=== PATIENT | female | born 1995 | race Hispanic/Latino ===

== ENCOUNTER 2017-08-07 06:53 | Emergency (ER) | payer OTHER ==
[~2017-08-07] VITALS: Ht 165.1 cm; Wt 68.0 kg
[~2017-08-07 06:53] MED LIST: CIPRO500 MG PO; KEFLEX500 MG PO; LIDOCAINE20 MG/1 M2 TOP; NEXPLANON68 MG SUB-Q; OMEPRAZOLE20 MG PO; PYRIDIUM200 MG PO; ULTRAM50 MG PO; ZOFRAN ODT8 MG PO; ZOVIRAX200 MG PO
[2017-08-07] MEDS ORDERED: NAPROSYN500 MG PO (08:15)
--- OUTSIDE RECORDS SUMMARY | 2017-08-07 08:18 | XMS ---
Demographics + + + | Address | [address] | | | [address] | | | [place] [address] | + + + | Preferred Language | Unknown | + + + | Marital Status | Unknown | + + + | Islam Affiliation | Unknown | + + + | Race | Unknown | + + + | Ethnic Group | Unknown | + + + Author + + + | Author | [facility] | + + + | Organization | [facility] | + + + | Address | [address] | | | [place] [address] | + + + | Phone | | + + + Care Team Providers + + + + | Care Medical Logistics Specialist Name | Role | Phone | + + + + Unavailable | Unavailable | + + + + PROBLEMS +---------+ + + +--------+ + + | Type | Condition | ICD9-CM | [id number] | Onset | Condition | SNOMED | | | | Code | Code | Dates | Status | Code | +---------+ + + +--------+ + + | Problem | Bipolar | F31.9 | | | Active | [id number] | | | disorder | | | | | | +---------+ + + +--------+ + + | Problem | Anxiety | F41.8 | | | Active | [id number] | | | with | | | | | | | | depression | | | | | | +---------+ + + +--------+ + + | Problem | Left lower | R10.32 | | | Active | [id number] | | | quadrant | | | | | | | | abdominal | | | | | | | | pain of | | | | | | | | unknown | | | | | | | | etiology | | | | | | +---------+ + + +--------+ + + | Problem | PTSD | | F43.10 | | Active | 86510089 | | | (post-trau | | | | | | | | matic | | | | | | | | stress | | | | | | | | disorder) | | | | | | +---------+ + + +--------+ + + | Problem | Epigastric | | R10.13 | | Active | 32693192 | | | pain | | | | | | +---------+ + + +--------+ + + ALLERGIES Unknown Allergies SOCIAL HISTORY No smoking Hx information available PLAN OF CARE VITAL SIGNS MEDICATIONS + + + + + + + +--------+ | Medicati | Instruct | Dosage | Frequenc | Start | End Date | Duration | Status | | on | ions | | y | Date | | | | + + + + + + + +--------+ | Metronid | Orally | 1 tablet | 8h | 31 Jan, | 10 Aug, | 14 | Active | | azole | every 8 | | | 2017 | 2017 | day(s) | | | 500 MG | hrs | | | | | | | + + + + + + + +--------+ RESULTS No Results PROCEDURES No Known procedures IMMUNIZATIONS No Known Immunizations"
--- OUTSIDE RECORDS SUMMARY | 2017-08-07 08:19 | XMS ---
Demographics + + + | Address | [address] | | | [address] | | | [place] [address] | + + + | Preferred Language | Unknown | + + + | Marital Status | Unknown | + + + | Judaism Affiliation | Unknown | + + + | Race | Unknown | + + + | Ethnic Group | Unknown | + + + Author + + + | Author | [facility] | + + + | Organization | [facility] | + + + | Address | [address] | | | [place] [address] | + + + | Phone | | + + + Care Team Providers + + + + | Care Cook Fish Eggs Name | Role | Phone | + + + + Unavailable | Unavailable | + + + + PROBLEMS +---------+ + + +--------+ + + | Type | Condition | ICD9-CM | [id number] | Onset | Condition | SNOMED | | | | Code | Code | Dates | Status | Code | +---------+ + + +--------+ + + | Problem | Bipolar | F31.9 | | | Active | [id number] | | | disorder | | | | | | +---------+ + + +--------+ + + | Problem | Anxiety | F41.8 | | | Active | [id number] | | | with | | | | | | | | depression | | | | | | +---------+ + + +--------+ + + | Problem | Left lower | R10.32 | | | Active | [id number] | | | quadrant | | | [...] | | F43.10 | | Active | 03130048 | | | (post-trau | | | | | | | | matic | | | | | | | | stress | | | | | | | | disorder) | | | | | | +---------+ + + +--------+ + + | Problem | Epigastric | | R10.13 | | Active | 68947938 | | | pain | | | | | | +---------+ + + +--------+ + + ALLERGIES + + + + +--------+ | Substance | Reaction | Event Type | Date | Status | + + + + +--------+ | Seasonal | Unknown | Non Drug | Mar, | Active | | | | Allergy | | | + + + + +--------+ SOCIAL HISTORY No smoking Hx information available PLAN OF CARE + +---------+ | Activity | Details | + +---------+ +---+ | | +---+ + + + | Follow Up | prn Reason:null | + + + VITAL SIGNS + + + + | Height | 65.5 in | 2017-03-12 | + + + + | Weight | 149 lbs | 2017-03-12 | + + + + | BMI | 24.42 kg/m2 | 2017-03-12 | + + + + | Temperature | 99.1 degrees Fahrenheit | 2017-03-12 | + + + + | Heart Rate | 113 /min | 2017-03-12 | + + + + | Blood pressure systolic | 120 mm Hg | 2017-03-12 | + + + + | Blood pressure diastolic | 75 mm Hg | 2017-03-12 | + + + + MEDICATIONS + + +--------+ +--------+ + +--------+ | Medicati | Instruct | Dosage | Frequenc | Start | End Date | Duration | Status | | on | ions | | y | Date | | | | + + +--------+ +--------+ + +--------+ | Nexplano | | | | | | | Active | | n | | | | | | | | + + +--------+ +--------+ + +--------+ RESULTS No Results PROCEDURES + + + + + | Procedure | Date Ordered | Related Diagnosis | Body Site | + + + + + | Est Level IV | Mar 12, 2017 | | | | Extended | | | | + + + + + | DSCHRG MED/CURRENT | Mar 12, 2017 | | | | MED MERGE | | | | + + + + + | DOC MEDS VERIFIED | Mar 12, 2017 | | | | W/PT OR RE | | | | + + + + + IMMUNIZATIONS No Known Immunizations"
--- OUTSIDE RECORDS SUMMARY | 2017-08-07 08:19 | XMS ---
Demographics + + + | Address | [address] | | | [address] | | | [place] [address] | + + + | Preferred Language | Unknown | + + + | Marital Status | Unknown | + + + | Yazidism Affiliation | Unknown | + + + | Race | Unknown | + + + | Ethnic Group | Unknown | + + + Author + + + | Author | [facility] | + + + | Organization | [facility] | + + + | Address | [address] | | | [place] [address] | + + + | Phone | | + + + Care Team Providers + + + + | Care Public Address Announcer Name | Role | Phone | + + + + Unavailable | Unavailable | + + + + PROBLEMS +---------+ + + +--------+ + + | Type | Condition | ICD9-CM | [id number] | Onset | Condition | SNOMED | | | | Code | Code | Dates | Status | Code | +---------+ + + +--------+ + + | Problem | Bipolar | F31.9 | | | Active | [id number] | | | disorder | | | | | | +---------+ + + +--------+ + + | Problem | Anxiety | F41.8 | | | Active | [id number] | | | with | | | | | | | | depression | | | | | | +---------+ + + +--------+ + + | Problem | Left lower | R10.32 | | | Active | [id number] | | | quadrant | | | [...] | | F43.10 | | Active | 60410675 | | | (post-trau | | | | | | | | matic | | | | | | | | stress | | | | | | | | disorder) | | | | | | +---------+ + + +--------+ + + | Problem | Epigastric | | R10.13 | | Active | 12582594 | | | pain | | | | | | +---------+ + + +--------+ + + ALLERGIES Unknown Allergies SOCIAL HISTORY No smoking Hx information available PLAN OF CARE VITAL SIGNS MEDICATIONS Unknown Medications RESULTS No Results PROCEDURES No Known procedures IMMUNIZATIONS No Known Immunizations"
--- OUTSIDE RECORDS SUMMARY | 2017-08-07 08:19 | XMS ---
Demographics + + + | Address | [address] | | | [address] | | | [place] [address] | + + + | Preferred Language [...] | + + + | Organization | [facility] | + + + | Address | [address] | | | [place] [address] | + + + | Phone | | + + + Care Team Providers + + + + | Care Evaluator Name | Role | Phone | + + + + Unavailable | Unavailable | + + + + PROBLEMS +---------+ + + +--------+ + + | Type | Condition | ICD9-CM | [id number] | Onset | Condition | SNOMED | | | | Code | Code | Dates | Status | Code | +---------+ + + +--------+ + + | Problem | Bipolar | F31.9 | | | Active | 50910760 | | | disorder | | | | | | +---------+ + + +--------+ + + | Problem | Anxiety | F41.8 | | | Active | 112395014 | | | with | | | | | | | | depression | | | | | | +---------+ + + +--------+ + + | Problem | Left lower | R10.32 | | | Active | [id number] | | | quadrant | | | [...] | | F43.10 | | Active | 35802496 | | | (post-trau | | | | | | | | matic | | | | | | | | stress | | | | | | | | disorder) | | | | | | +---------+ + + +--------+ + + | Problem | Epigastric | | R10.13 | | Active | 35726748 | | | pain | | | | | | +---------+ + + +--------+ + + ALLERGIES Unknown Allergies SOCIAL HISTORY No smoking Hx information available PLAN OF CARE VITAL SIGNS MEDICATIONS Unknown Medications RESULTS No Results PROCEDURES No Known procedures IMMUNIZATIONS No Known Immunizations"
--- OUTSIDE RECORDS SUMMARY | 2017-08-07 08:19 | XMS ---
Demographics + + + | Address | [address] | | | [address] | | | [place] [address] | + + + | Preferred Language | Unknown | + + + | Marital Status | Unknown | + + + | Christianity Affiliation | Unknown | + + + | Race | Unknown | + + + | Ethnic Group | Unknown | + + + Author + + + | Author | [facility] | + + + | Organization | [facility] | + + + | Address | [address] | | | [place] [address] | + + + | Phone | | + + + Care Team Providers + + + + | Care Machine Stemmer Name | Role | Phone | + + + + Unavailable | Unavailable | + + + + PROBLEMS +---------+ + + +--------+ + + | Type | Condition | ICD9-CM | [id number] | Onset | Condition | SNOMED | | | | Code | Code | Dates | Status | Code | +---------+ + + +--------+ + + | Problem | Bipolar | F31.9 | | | Active | [id number] | | | disorder | | | | | | +---------+ + + +--------+ + + | Problem | Anxiety | F41.8 | | | Active | [id number] | | | with | | | | | | | | depression | | | | | | +---------+ + + +--------+ + + | Problem | Left lower | R10.32 | | | Active | [id number] | | | quadrant | | | [...] | | F43.10 | | Active | 58021363 | | | (post-trau | | | | | | | | matic | | | | | | | | stress | | | | | | | | disorder) | | | | | | +---------+ + + +--------+ + + | Problem | Epigastric | | R10.13 | | Active | 10132889 | | | pain | | | | | | +---------+ + + +--------+ + + ALLERGIES + + + + +--------+ | Substance | Reaction | Event Type | Date | Status | + + + + +--------+ | Seasonal | Unknown | Non Drug | Jan, | Active | | | | Allergy | | | + + + + +--------+ SOCIAL HISTORY No smoking Hx information available PLAN OF CARE + +---------+ | Activity | Details | + +---------+ +---+ | | +---+ + + + | Follow Up | 2 Weeks Reason:null | + + + | Pending Test | Urinalysis, Complete | + + + | Pending Test | CBC With Differential/Platelet | + + + | Pending Test | Stool Culture | + + + | Pending Test | TSH+Free T4 | + + + | Pending Test | Comp. Metabolic Panel (14) | + + + | Pending Test | Stool-C Difficile Toxin | + + + | Pending Test | Stool Culture -O&P | + + + | Pending Test | HCG, Qual | + + + | Pending Test | Helicobacter pylori Antigen, Stool | + + + VITAL SIGNS + + + + | Height | 65.5 in | 2017-01-29 | + + + + | Weight | 147.8 lbs | 2017-01-29 | + + + + | BMI | 24.22 kg/m2 | 2017-01-29 | + + + + | Temperature | 98.5 degrees Fahrenheit | 2017-01-29 | + + + + | Heart Rate | 88 /min | 2017-01-29 | + + + + | Blood pressure systolic | 135 mm Hg | 2017-01-29 | + + + + | Blood pressure diastolic | 90 mm Hg | 2017-01-29 | + + + + MEDICATIONS + + +---------+ + + + +--------+ | Medicati | Instruct | Dosage | Frequenc | Start | End Date | Duration | Status | | on | ions | | y | Date | | | | + + +---------+ + + + +--------+ | Omeprazo | Orally | 1 | | 26 Carlo, | | 30 | Active | | le 20 mg | qHS | capsule | | 2016 | | day(s) | | + + +---------+ + + + +--------+ | Nexplano | | | | | | | Active | | n | | | | | | | | + + +---------+ + + + +--------+ RESULTS No Results PROCEDURES + + + + + | Procedure | Date Ordered | Related Diagnosis | Body Site | + + + + + | Est Level IV | January 29, 2017 | | | | Extended | | | | + + + + + | DSCHRG MED/CURRENT | January 29, 2017 | | | | MED MERGE | | | | + + + + + | DOC MEDS VERIFIED | January 29, 2017 | | | | W/PT OR RE | | | | + + + + + IMMUNIZATIONS No Known Immunizations"
--- OUTSIDE RECORDS SUMMARY | 2017-08-07 08:19 | XMS ---
Demographics + + + | Address | [address] | | | [address] | | | [place] [address] | + + + | Preferred Language | Unknown | + + + | Marital Status | Unknown | + + + | Episcopalian Affiliation | Unknown | + + + | Race | Unknown | + + + | Ethnic Group | Unknown | + + + Author + + + | Author | [facility] | + + + | Organization | [facility] | + + + | Address | [address] | | | [place] [address] | + + + | Phone | | + + + Care Team Providers + + + + | Care Plastics Technician Name | Role | Phone | + + + + Unavailable | Unavailable | + + + + PROBLEMS +---------+ + + +--------+ + + | Type | Condition | ICD9-CM | [id number] | Onset | Condition | SNOMED | | | | Code | Code | Dates | Status | Code | +---------+ + + +--------+ + + | Problem | Bipolar | F31.9 | | | Active | [id number] | | | disorder | | | | | | +---------+ + + +--------+ + + | Problem | Anxiety | F41.8 | | | Active | [id number] | | | with | | | | | | | | depression | | | | | | +---------+ + + +--------+ + + | Problem | Left lower | R10.32 | | | Active | [id number] | | | quadrant | | | [...] | | F43.10 | | Active | 18999743 | | | (post-trau | | | | | | | | matic | | | | | | | | stress | | | | | | | | disorder) | | | | | | +---------+ + + +--------+ + + | Problem | Epigastric | | R10.13 | | Active | 18229106 | | | pain | | | | | | +---------+ + + +--------+ + + ALLERGIES Unknown Allergies SOCIAL HISTORY No smoking Hx information available PLAN OF CARE VITAL SIGNS MEDICATIONS Unknown Medications RESULTS No Results PROCEDURES No Known procedures IMMUNIZATIONS No Known Immunizations"
== END 2017-08-07 08:32 | disposition home or self-care (01) ==
LOC: ED 06:53
DX: S20.212A Contusion of left front wall of thorax, initial encounter (principal); J45.909 Unspecified asthma, uncomplicated; F43.10 Post-traumatic stress disorder, unspecified; F32.9 Major depressive disorder, single episode, unspecified; F31.9 Bipolar disorder, unspecified; F41.9 Anxiety disorder, unspecified; Z79.899 Other long term (current) drug therapy; V03.90XA Pedestrian on foot injured in collision with car, pick-up truck or van, unspecified whether traffic or nontraffic accident, initial encounter
CPT/HCPCS: 71046; 72170; 84703; 99283

== ENCOUNTER 2017-10-30 03:23 | Emergency (ER) | payer OTHER ==
[~2017-10-30] VITALS: Ht 165.1 cm; Wt 68.0 kg
[~2017-10-30 03:23] MED LIST changes: +NAPROSYN500 MG PO
== END 2017-10-30 03:48 | disposition home or self-care (01) ==
LOC: ED 03:23
DX: Z00.8 Encounter for other general examination (principal); J45.909 Unspecified asthma, uncomplicated; F43.10 Post-traumatic stress disorder, unspecified; F32.9 Major depressive disorder, single episode, unspecified; F41.9 Anxiety disorder, unspecified; F31.9 Bipolar disorder, unspecified; Z79.899 Other long term (current) drug therapy
CPT/HCPCS: 99283